=== PATIENT | female | born 1945 | race Two or more races ===

== ENCOUNTER 2019-01-29 11:10 | Outpatient (CLI) | payer OTHER | END 2019-01-29 11:14 | disposition home or self-care (01) | LOC: RAD 11:10 | DX: S52.551A Other extraarticular fracture of lower end of right radius, initial encounter for closed fracture (principal) ==

== ENCOUNTER 2019-02-07 11:19 | Outpatient (CLI) | payer OTHER | END 2019-02-07 11:21 | disposition home or self-care (01) | LOC: RAD 11:19 | DX: S52.551A Other extraarticular fracture of lower end of right radius, initial encounter for closed fracture (principal) ==

== ENCOUNTER 2019-02-24 08:14 | Outpatient (CLI) | payer OTHER | END 2019-02-24 08:32 | disposition home or self-care (01) | LOC: LAB 08:14 | DX: E21.2 Other hyperparathyroidism (principal); E55.9 Vitamin D deficiency, unspecified; M85.88 Other specified disorders of bone density and structure, other site; E88.89 Other specified metabolic disorders; M81.8 Other osteoporosis without current pathological fracture; E56.1 Deficiency of vitamin K ==

== ENCOUNTER → 2019-03-01 | Outpatient (CLI) | payer OTHER | END | disposition home or self-care (01) | LOC: RAD 14:50 | DX: M25.531 Pain in right wrist (principal) ==

== ENCOUNTER 2019-03-23 08:26 | Outpatient (CLI) | payer OTHER | END 2019-03-23 08:45 | disposition home or self-care (01) | LOC: NUCLEAR 08:26 | DX: M81.0 Age-related osteoporosis without current pathological fracture (principal); E21.3 Hyperparathyroidism, unspecified | CPT/HCPCS: 78070; A9500 ==

== ENCOUNTER 2020-06-06 09:51 | Outpatient (CLI) | payer OTHER | END 2020-06-06 10:14 | disposition home or self-care (01) | LOC: LAB 09:51 | PROVIDERS: ATTEND Orthopaedic Surgery | DX: E56.1 Deficiency of vitamin K (principal); E55.9 Vitamin D deficiency, unspecified; M85.88 Other specified disorders of bone density and structure, other site; M25.531 Pain in right wrist; M79.641 Pain in right hand ==

== ENCOUNTER → 2022-03-25 | Outpatient (CLI) | payer OTHER | END | disposition home or self-care (01) | LOC: NUCLEAR 07:00 | PROVIDERS: ATTEND Internal Medicine | DX: D35.1 Benign neoplasm of parathyroid gland (principal); E21.3 Hyperparathyroidism, unspecified | CPT/HCPCS: 78072; A9500 ==

== ENCOUNTER 2023-03-14 08:36 | Emergency (ER) | payer OTHER ==
[~2023-03-14] VITALS: Ht 157.5 cm; Wt 68.0 kg
[2023-03-14 09:25] LABS: HEMATOCRIT 39.7 % (36.0-45.00); HEMOGLOBIN 13.9 g/dL (12.0-15.00); MEAN CELL VOLUME 89.2 fL (80.00-100.00); MEAN CORPUSCULAR HEMOGLOBIN 31.3 pg (27.00-32.0); PLATELET COUNT 158 K/uL (150-450); RED BLOOD COUNT 4.45 M/uL (4.00-6.00); RED CELL DISTRIBUTION WIDTH 14.4 % (11.5-14.5)
[2023-03-14 10:02] LABS: CREATININE SERUM 1.21 mg/dL (0.55-1.02); GFR 43.03; POTASSIUM 3.26 mEq/L (3.5-5.1)
[2023-03-14 10:51] LABS: CALCIUM 13.1 mg/dL (8.5-10.1)
[2023-03-14] MEDS ORDERED: TRAMADOL HCL50 MG PO (16:56)
== END 2023-03-14 17:42 | disposition home or self-care (01) ==
LOC: ER
PROVIDERS: Emergency Medicine
DX: S09.8XXA Other specified injuries of head, initial encounter (principal); W18.39XA Other fall on same level, initial encounter; Y93.89 Activity, other specified; Y92.89 Other specified places as the place of occurrence of the external cause; Z88.2 Allergy status to sulfonamides; I10 Essential (primary) hypertension; S62.91XA Unspecified fracture of right hand, initial encounter for closed fracture
CPT/HCPCS: 70544

== ENCOUNTER 2023-04-05 10:46 | Outpatient (CLI) | payer OTHER ==
[~2023-04-05 10:46] MED LIST: TRAMADOL HCL50 MG PO
== END 2023-04-05 10:58 | disposition home or self-care (01) ==
LOC: TOM 10:46
PROVIDERS: ATTEND Orthopaedic Surgery
DX: M79.644 Pain in right finger(s) (principal)

== ENCOUNTER 2023-04-05 15:09 | Outpatient (CLI) | payer OTHER ==
[2023-04-05 15:58] LABS: URINE APPEARANCE Clear; URINE BILIRRUBIN Negative (NEGATIVE); URINE BLOOD Negative; URINE COLOR Yellow; URINE GLUCOSE Negative (NEGATIVE); URINE LEUKOCYTE Negative; URINE NITRATE Negative; URINE PROTEIN Negative (NEGATIVE); URINE UROBILINOGEN 0.2 E.U./dl
[2023-04-05 16:01] LABS: URINE BACTERIA 11.3 uL (0.0-1933); URINE RBC 9.7 uL (0.0-20.8)
[2023-04-05 16:13] LABS: URINE WBC 1.5 uL (0.0-23.2)
[2023-04-05 16:14] LABS: HEMOGLOBIN 13.8 g/dL (12.0-15.00); MEAN CELL VOLUME 91.2 fL (80.00-100.00); MEAN CORPUSCULAR HEMOGLOBIN 32.2 pg (27.00-32.0); MEAN CORPUSCULAR HGB CONC 35.3 g/dl (32.0-36.0); PLATELET COUNT 214 K/uL (150-450); RED BLOOD COUNT 4.28 M/uL (4.00-6.00); RED CELL DISTRIBUTION WIDTH 14.5 % (11.5-14.5)
[2023-04-05 16:35] LABS: INR 0.98; PARTIAL THROMBOPLASTIN TIME 31.4 SECONDS (22.0-34.0); PROTHROMBIN TIME 10.3 SECONDS (9.0-11.5)
[2023-04-05 16:40] LABS: ALBUMIN 3.8 gm/dL (3.4-5.0); BILIRUBIN TOTAL 0.71 mg/dL (0.3-1.2); CALCIUM 9.1 mg/dL (8.5-10.1); CREATININE SERUM 0.85 mg/dL (0.55-1.02); GFR 64.68; GLOBULINA 3.7 G/DL (2.4-3.5); MAGNESIUM 1.9 mg/dL (1.8-2.4); PHOSPHOROUS 2.7 mg/dL (2.5-4.9); POTASSIUM 3.58 mEq/L (3.5-5.1); TOTAL PROTEIN 7.5 gm/dL (6.4-8.2)
[2023-04-07 12:12] LABS: CALCIUM IONIZED 4.8 mg/dL (4.5-5.6)
[2023-04-10 22:05] LABS: VITAMIN K 0.23 ng/mL (0.10-2.20)
== END 2023-04-05 23:00 | disposition home or self-care (01) ==
LOC: LAB 15:09
PROVIDERS: ATTEND Orthopaedic Surgery
DX: E55.9 Vitamin D deficiency, unspecified (principal); M85.9 Disorder of bone density and structure, unspecified; E83.42 Hypomagnesemia; E56.1 Deficiency of vitamin K; E88.89 Other specified metabolic disorders; M81.8 Other osteoporosis without current pathological fracture; D64.9 Anemia, unspecified; D68.8 Other specified coagulation defects; N39.0 Urinary tract infection, site not specified; Z22.322 Carrier or suspected carrier of Methicillin resistant Staphylococcus aureus; M54.50 Low back pain, unspecified; Z76.89 Persons encountering health services in other specified circumstances; I20.89 Other forms of angina pectoris

== ENCOUNTER 2023-04-21 09:45 | Outpatient (CLI) | payer OTHER | END 2023-04-21 09:49 | disposition home or self-care (01) | LOC: RAD 09:45 | PROVIDERS: ATTEND Orthopaedic Surgery | DX: S63.06 Subluxation and dislocation of metacarpal (bone), proximal end (principal) ==

== ENCOUNTER 2023-06-02 08:54 | Outpatient (CLI) | payer OTHER | END 2023-06-02 08:55 | disposition home or self-care (01) | LOC: RAD 08:54 | PROVIDERS: ATTEND Orthopaedic Surgery | DX: S63.06 Subluxation and dislocation of metacarpal (bone), proximal end (principal); R74.01 Elevation of levels of liver transaminase levels; Z88.2 Allergy status to sulfonamides ==

== ENCOUNTER 2023-12-09 08:50 | Outpatient (CLI) | payer OTHER ==
[2023-12-09 12:49] LABS: ALBUMIN 3.6 gm/dL (3.4-5.0); BILIRUBIN TOTAL 0.81 mg/dL (0.3-1.2); CALCIUM 9.3 mg/dL (8.5-10.1); CREATININE SERUM 0.73 mg/dL (0.55-1.02); GFR 76.9; GLOBULINA 3.6 G/DL (2.4-3.5); MAGNESIUM 2.3 mg/dL (1.8-2.4); PHOSPHOROUS 2.4 mg/dL (2.5-4.9); POTASSIUM 3.54 mEq/L (3.5-5.1); TOTAL PROTEIN 7.2 gm/dL (6.4-8.2)
== END 2023-12-09 10:17 | disposition home or self-care (01) ==
LOC: LAB 08:50
PROVIDERS: ATTEND Orthopaedic Surgery
DX: E55.9 Vitamin D deficiency, unspecified (principal); M85.9 Disorder of bone density and structure, unspecified; E56.1 Deficiency of vitamin K; E21.3 Hyperparathyroidism, unspecified; E88.89 Other specified metabolic disorders; M81.8 Other osteoporosis without current pathological fracture